=== PATIENT | female | born 1945 | race Caucasian/White ===

== ENCOUNTER → 2017-06-26 | Day surgery (SDC) | payer MEDICARE ==
[~2017-06-26] VITALS: Ht 154.9 cm; Wt 63.0 kg
[~2017-06-26] MED LIST: ALPR.5 PO; BETA0.052 TOPICAL; CHLORHEXIDINE GLUCONATE 2 % 1 PACK (2 CLOTHS) TOPICAL PRN; ESTRGEL TOPICAL; FAMOTIDINE 20 MG/2 ML VIAL ONE; INSULIN HUMAN REGULAR 1,000 UNITS/10 ML VIAL SQ PRN; LACTATED RINGER'S 1000 ML IV PRN; METOPROLOL TARTRATE 25 MG TAB PO PRN; MIDAZOLAM HCL 2 MG/2 ML VIAL ONE; NATU65TA PO; POVIDONE IODINE 5% (ANTISEPSIS KIT) 4 APPLICATIONS EACH NARE PRN; PROG100C PO; SODIUM CHLORID 0.9% 500 ML IV PRN; ceFAZolin 1,000 MG/NS 100 ML IV SCH; ceFAZolin INJ 1,000 MG VIAL ONE
[2017-06-26 08:30] VITALS: PULSE 59
--- NOTE | 2017-06-26 08:38 | PD.OP ---
Operative Report Date of Surgery: Jun 26, 2017 Preoperative Diagnosis: (1) Endometrial polyp (2) Postmenopausal bleeding Postoperative Diagnosis: (1) Endometrial polyp (2) Postmenopausal bleeding Procedure: Hysteroscopy with polypectomy, dilation and curettage Endocervical curettage Anesthesia: Dr. Mac/Grecia BOLDEN Surgeon: Veronika Lara Senior Mechanical Design Engineer(s): Florecita Colon Surgeon: n/a Operation and Findings: Indications: [This post-menopausal patient had an episode of post-menopausal bleeding. Endometrial biopsy obtained in office was suggestive of endometrial polyp.-] Findings: Patient was found on hysteroscopic view to have [polypoid endometrium in the anterior lower uterine segment. and a flat polyp in the anterior fundus, both removed with a sharp curet. The endocervix was sampled separately before cervical dilation. Moderate tissue returned on ECC, small on endometrial sample. Procedure: Patient was brought to the OR and laid supine on the table. After inducing general anesthesia she was positioned in low stirrups in dorso- lithotomy position. An open-sided speculum was placed in the vagina after Betadine prep and time out. The anterior lip of the cervix was grasped with a single tooth tenaculum, and endocervical curettage specimen was collected. Then the cervix was dilated to accept a standard rigid hysteroscope. After viewing and identifying the above findings, the polypoid was extracted with small sharp curet. The endometrium was then thoroughly sampled as well and included in the endometrial specimen. Small tissue returned. A second hysteroscopic view confirmed that all the findings described above were included in the specimen. The procedure being complete, the instruments were removed, the patient was replaced supine and she was awakened. She was transferred to the PACU breathing on her own in stable condition. Sponge, needle, and instrument counts were correct. Veronika Lara MD Jun 26, 2017 08:38
[2017-06-26 09:15] VITALS: PULSE 50; TEMP 97.7
--- NOTE | 2017-06-26 09:28 | EKG ---
Date Performed: 06/26/2017 Time Performed: 07:09:41 PTAGE: 71 years EKG: SINUS BRADYCARDIA POSSIBLE ANTERIOR MYOCARDIAL INFARCTION ABNORMAL ECG NO PREVIOUS TRACING DOCTOR: Torey Valadez Interpretating Date/Time 06/26/2017 09:27:13
[2017-06-26 10:10] VITALS: BP 138/61; PULSE 55; RESP 14; O2SAT 96
== END | disposition home or self-care (01) ==
LOC: PHSDC 06:24
PROVIDERS: ATTEND Obstetrics & Gynecology
DX: N84.0 Polyp of corpus uteri (principal); N95.0 Postmenopausal bleeding; R94.31 Abnormal electrocardiogram [ECG] [EKG]
CPT/HCPCS: 00952; 58558; 88305; 93005; J0690; J2250; J3010; J7120